=== PATIENT | male | born 1950 | race Caucasian/White ===

== ENCOUNTER → 2018-12-16 | Outpatient (CLI) | payer SELFPAY ==
--- NOTE | 2018-12-16 12:18 | REP ---
Right lower extremity Duplex Doppler venous ultrasound: Real time compression and duplex Doppler interrogation of the right lower extremity deep venous system is performed. The right common femoral, superficial femoral and popliteal veins are fully compressible with transducer pressure and demonstrate normal spontaneous and phasic flow, without evidence of deep venous thrombosis. Impression: No evidence of deep venous thrombosis of the right lower extremity femoral popliteal venous system. Electronically Signed by Amilcar Suarez MD 12/16/2018 12:09 P
== END ==
LOC: M RAD 11:11
PROVIDERS: ATTEND Orthopaedic Surgery
DX: M79.604 Pain in right leg (principal)